=== PATIENT | female | born 1995 | race Caucasian/White ===

== ENCOUNTER 2019-05-16 13:52 | Emergency (ER) | payer OTHER ==
[~2019-05-16] VITALS: Ht 165.1 cm; Wt 70.6 kg
[2019-05-16 14:35] VITALS: BP 106/59
--- NOTE | 2019-05-16 15:56 | NUR ---
PT INSTRUCTED ON CRUTCH WALKING
== END 2019-05-16 15:57 ==
LOC: ED 15:51
DX: S82.124A Nondisplaced fracture of lateral condyle of right tibia, initial encounter for closed fracture (principal); W19.XXXA Unspecified fall, initial encounter; Y93.89 Activity, other specified; Y92.89 Other specified places as the place of occurrence of the external cause; Y99.8 Other external cause status
CPT/HCPCS: 99283